=== PATIENT | male | born 1995 | race Caucasian/White ===

== ENCOUNTER 2019-02-12 04:12 | Emergency (ER) | payer SELFPAY ==
[~2019-02-12] VITALS: Ht 167.6 cm; Wt 63.6 kg
[2019-02-12 04:19] VITALS: Ht 167.6 cm; Wt 63.6 kg
[2019-02-12 04:57] VITALS: BP 122/74
== END 2019-02-12 04:58 | disposition home or self-care (01) ==
LOC: D.ER 04:12
DX: B82.9 Intestinal parasitism, unspecified (principal); R21 Rash and other nonspecific skin eruption

== ENCOUNTER 2019-12-05 10:09 | Emergency (ER) | payer OTHER ==
[~2019-12-05] VITALS: Ht 167.6 cm; Wt 68.2 kg
[2019-12-05 10:13] VITALS: BP 144/94; Ht 167.6 cm; Wt 68.2 kg
== END 2019-12-05 11:03 | disposition home or self-care (01) ==
LOC: D.ER 10:09
DX: F32.9 Major depressive disorder, single episode, unspecified (principal); S81.812A Laceration without foreign body, left lower leg, initial encounter; X78.9XXA Intentional self-harm by unspecified sharp object, initial encounter; Y93.9 Activity, unspecified; Y92.9 Unspecified place or not applicable